=== PATIENT | male | born 1930 | race Caucasian/White ===

== ENCOUNTER 2018-09-26 21:37 | Inpatient (IN) ==
[2018-09-26 23:19] LABS: BASO# 0.03 X1000 (0.0-0.2); BASO% 0.3 % (0.0-0.8); EOS# 0.05 X1000 (0.0-0.7); EOS% 0.4 % (0.0-10.0); HEMATOCRIT 36.9 % (42.0-52.0); HEMOGLOBIN 12.1 g/dL (14.0-18.0); IMM GRAN# 0.05 X1000 (0.0-0.04); IMM GRAN% 0.4 % (0.0-0.5); LYMPH# 1.43 X1000 (1.2-3.4); MCH 31.4 PG (27-31); MCHC 32.8 g/dL (33-37); MCV 95.8 FL (81-99); MONO# 1.41 X1000 (0.11-0.59); MONO% 11.8 % (1.7-9.3); MPV 11.6 FL (7.4-10.4); NEUT# 8.96 X1000 (1.4-6.5); NEUT% 75.1 % (42.2-75.2); PLT 154 X1000 (130-400); RBC 3.85 XMIL (4.7-6.1); RDW 14.5 % (11.5-14.5); WBC 11.93 X1000 (4.8-10.8)
[2018-09-26 23:34] LABS: BE -0.2 mmoll (-3.0-3.0); BLOOD TYPE ARTERIAL; HCO3-(ACT) 24.7 mmoll (20.0-26.0); METHB 0.9 % (0.0-1.5); O2(CT) 15.1 mL/dL (15.0-23.0); O2HB 92.3 % (95.0-99.0); PCO2(98.6) 41 mmHg (35-45); PO2(98.6) 62 mmHg (60-100); SAMPLE BLOOD; SAO2 95.1 % (95.0-100.0); THB 11.6 g/dL (11.5-17.4); pH(98.6) 7.39 (7.35-7.45)
[2018-09-26 23:36] LABS: ALLEN TEST YES; MODALITY ROOM AIR
[2018-09-26 23:49] LABS: PTT 30.4 Seconds (22.3-41.8)
[2018-09-26 23:50] LABS: INR 1.03
[2018-09-26] MEDS ORDERED: ROCEPHIN 1 GM in NS 50 ML IV ONE (23:54)
[2018-09-26 23:58] LABS: ALBUMIN 4.1 g/dL (3.5-5.0); CALCIUM 9.1 mg/dL (8.8-10.2); CREATININE 1.2 mg/dL (0.7-1.2); POTASSIUM 4.6 mmol/L (3.5-5.1); TOTAL BILIRUBIN 0.4 mg/dL (0.20-1.00)
[2018-09-27] MEDS ORDERED: NS 1,000 ML IV ONE (00:11)
--- NOTE | 2018-09-27 00:15 | PROVIDER DOCUMENTATION ---
This chart was entered by Cristy Murray Scribe, acting as scribe for Tanvir Beckham MD. HPI-General Adult - General Source: patient, family, EMS <Jeffrey SamuelsBecky - Last Filed: 09/27/18 03:00> - General Unable to obtain history due to:: other (hpi from family, pt alert only to self, hx of dementia) - History of Present Illness -Gen Adult Nature of Presenting Problems: pt is a 88 yr old male presenting with family, pt hx of dementia. family reports pt has been sleepier than normal, fell x 2 yesterday, cough and bilateral lower leg edema. pt denies any pain, no other complaints. Pain Radiation: reports: no radiation Severity: reports: moderate Onset/Duration: reports: gradual Timing: reports: changing over time, getting worse Context/Activities at Onset: reports: light activity Modifying Factors: improves with: nothing Associated Symptoms: reports: cough, fatigue, weakness, trouble walking. denies: shortness of breath Similar Symptoms Previously?: No Recently seen or treated by another doctor?: No <Tanvir Alonzo - Last Filed: 09/29/18 22:31> - General Chief Complaint: Altered Mental Status Stated Complaint: COUGH Time Seen by Provider: 09/26/18 22:35 Allergies/Adverse Reactions: Patient Allergies Allergy/AdvReac Type Severity Reaction Status Date / Time No Known Allergies Allergy Verified 09/26/18 21:49 Home Medications: Home Medication List Medication Instructions Recorded Confirmed Last Taken Type Alogliptin Gerber/Pioglitazone 1 tab PO HS 05/25/15 09/27/18 Unknown History [Oseni 25-30 mg Tablet] Memantine HCl/Donepezil HCl 1 cap PO DAILY 05/25/15 09/27/18 Unknown History [Namzaric 28 mg-10 mg Capsule] Metoprolol Succinate E.r. [Toprol 50 mg PO HS 05/25/15 09/27/18 Unknown History Xl] Ranolazine E.r. [Ranexa] 500 mg PO BID 05/25/15 09/27/18 Unknown History Sotalol HCl [Betapace] 80 mg PO BID 05/25/15 09/27/18 Unknown History Aspirin [Aspir-Low] 81 mg PO HS 09/27/18 09/27/18 Unknown History ATORVAstatin [Lipitor] 10 mg PO HS tab 09/29/18 Unknown Rx Acetaminophen [Tylenol] 650 mg PO Q6H PRN PRN tab 09/29/18 Unknown Rx CefPROZIL [Cefzil] 250 mg PO BID #10 tab 09/29/18 Unknown Rx Dimethicone/Oxybenzone [place] 1 gm TOP PRN PRN stick 09/29/18 Unknown Rx [Blistex Medicated Drake Lip [place]] Gentamicin 0.3% Oph Drops 1 drp BOTH EYES Q8H bottle 09/29/18 Unknown Rx Metoprolol Succinate E.r. [Toprol 50 mg PO DAILY tab 09/29/18 Unknown Rx Xl] Pioglitazone [Actos] 30 mg PO DAILY tab 09/29/18 Unknown Rx Ranolazine E.r. [Ranexa] 500 mg PO Q12HR tab 09/29/18 Unknown Rx Review of Systems - Adult - REVIEW OF SYSTEMS - ADULT ROS:: ROS per family Constitutional: reports: fever, fatique Eyes: reports: no symptoms reported Ears, Nose, Mouth & Throat: reports: no symptoms reported Cardiovascular: reports: edema. denies: chest pain, palpitations, syncope Respiratory: reports: cough. denies: shortness of breath, wheezing Gastrointestinal: denies: diarrhea, vomiting Genitourinary: denies: dysuria, frequency, flank pain Musculoskeletal: denies: back pain, muscle aches Integumentary: reports: no symptoms reported Neurological: denies: dizziness/vertigo, headache/migraines, syncope Psychiatric: reports: no symptoms reported Endocrine: reports: no symptoms reported Hematologic/Lymphatic: reports: no symptoms reported Allergic/Immunologic: reports: no symptoms reported All Other Systems: Reviewed and Negative <Tanvir Alonzo - Last Filed: 09/29/18 22:31> Past History - Adult - PAST MEDICAL HISTORY-ADULT Review of Records: reports: Old Records Reviewed, Nursing Assessment Review, Medications Reviewed, Social history reviewed & non-contributory. Major Childhood Illnesses: reports: denies history Cardiovascular: reports: cardiac disease, pacemaker Respiratory: reports: denies history Gastrointestinal: reports: denies history Obstetrical/Gynecological: reports: denies history Genitourinary: reports: denies history Musculoskeletal: reports: denies history Neurological: reports: dementia Endocrine/Immune: reports: Diabetes Other Conditions: reports: denies history - PRIOR SURGERIES/PROCEDURES Surgical/Procedure History: reports: CABG, cardiac stent, pacemaker - IMMUNIZATION STATUS Childhood Immunizations: See Nurse Assessment Flu Vaccine: See Nurse Assessment - FAMILY HISTORY Family History: reviewed, not pertinent - SOCIAL HISTORY Smoking: denies Substance Use: denies Living Situation: family <Tanvir Alonzo - Last Filed: 09/29/18 22:31> Physical Exam-General - PHYSICAL EXAM-ADULT Initial Vital Signs Reviewed: Yes - CONSTITUTIONAL General Appearance: alert (to self-baseline normal), no apparent distress - EYES Eyes: other (right conjunctival injection, discharge) - HEAD, EARS, NOSE, MOUTH & THROAT HENMT: normocephalic/atraumatic, moist mucous membranes, normal ENT inspection - NECK Neck: non-tender, full range of motion, supple, normal inspection - RESPIRATORY Respiratory: chest non-tender, lungs clear, normal breath sounds - CARDIOVASCULAR Cardiovascular: normal peripheral pulses, regular rate, rhythm - GASTROINTESTINAL (ABDOMEN) Abdominal Exam: normal bowel sounds, non tender, soft - LYMPHATIC Lymphatic: no adenopathy - MUSCULOSKELETAL Back Exam: normal inspection Extremity: pulse deficit (bilateral pedal pulse deficits), pedal edema (bilateral 1+ pitting edema to mid swenson), slow capillary refill Peripheral Pulses: dorsalis-pedis (R): 1+, dorsalis-pedis (L): 1+ - SKIN Integumentary: normal color, normal turgor, ecchymosis (right foot) - NEUROLOGIC Neurologic: grossly normal - PSYCHIATRIC Psych/Mental Status: other (oriented only to self-baseline) <Tanvir Alonzo - Last Filed: 09/29/18 22:31> Progress - PLAN OF CARE/RESULTS Progress/Plan/Lab Results: Vital Signs - 8 hr 09/26/18 21:43 09/26/18 23:27 09/26/18 23:33 Temperature 99.9 F H Pulse Rate 65 63 74 Respiratory Rate 18 23 26 H Blood Pressure 174/75 168/124 O2 Sat by Pulse Oximetry 98 100 09/27/18 01:10 Temperature Pulse Rate 66 Respiratory Rate 23 Blood Pressure 155/82 O2 Sat by Pulse Oximetry 95 Laboratory Results - last 24 hr 09/26/18 09/26/18 09/26/18 21:49 23:10 23:10 WBC 11.93 H RBC 3.85 L Hgb 12.1 L Hct 36.9 L MCV 95.8 MCH 31.4 H MCHC 32.8 L RDW Std Deviation 14.5 Plt Count 154 MPV 11.6 H Immature Gran % (Auto) 0.4 Neut % (Auto) 75.1 Lymph % (Auto) 12.0 L [place] % (Auto) 11.8 H Eos % (Auto) 0.4 Baso % (Auto) 0.3 Immature Gran # (Auto) 0.05 H Neut # (Auto) 8.96 H Lymph # (Auto) 1.43 [place] # (Auto) 1.41 H Eos # (Auto) 0.05 Baso # (Auto) 0.03 PT INR PTT (Actin FS) Specimen Type Sample Site pH pCO2 pO2 HCO3 Base Excess Oxyhemoglobin ABG O2 Sat (Calculated) ABG O2 Saturation ABG Carboxyhemoglobin ABG Methemoglobin [place]andro Test A-a O2 Difference Total Hemoglobin Lactate Blood Gas Modality FiO2 % Sodium 136 Potassium 4.6 Chloride 101 Carbon Dioxide 25 Anion Gap 10 BUN 28 H Creatinine 1.2 Estimated GFR/1.73 m2 57 BUN/Creatinine Ratio 23 Glucose 205 H POC Glucose 257 H Calculated Osmolality 283 Calcium 9.1 Total Bilirubin 0.40 AST 20 ALT 13 Alkaline Phosphatase 78 Creatine Kinase 424 H Troponin T Total Protein 8.0 Albumin 4.1 Globulin 4.0 Albumin/Globulin Ratio 1.0 Plasma Lactate 09/26/18 09/26/18 09/26/18 23:10 23:10 23:10 WBC RBC Hgb Hct MCV MCH MCHC RDW Std Deviation Plt Count MPV Immature Gran % (Auto) Neut % (Auto) Lymph % (Auto) [place] % (Auto) Eos % (Auto) Baso % (Auto) Immature Gran # (Auto) Neut # (Auto) Lymph # (Auto) [place] # (Auto) Eos # (Auto) Baso # (Auto) PT 14.0 INR 1.03 PTT (Actin FS) 30.4 Specimen Type Sample Site pH pCO2 pO2 HCO3 Base Excess Oxyhemoglobin ABG O2 Sat (Calculated) ABG O2 Saturation ABG Carboxyhemoglobin ABG Methemoglobin Leandro Test A-a O2 Difference Total Hemoglobin Lactate Blood Gas Modality FiO2 % Sodium Potassium Chloride Carbon Dioxide Anion Gap BUN Creatinine Estimated GFR/1.73 m2 BUN/Creatinine Ratio Glucose POC Glucose Calculated Osmolality Calcium Total Bilirubin AST ALT Alkaline Phosphatase Creatine Kinase Troponin T 0.029 Total Protein Albumin Globulin Albumin/Globulin Ratio Plasma Lactate 1.0 09/26/18 23:19 WBC RBC Hgb Hct MCV MCH MCHC RDW Std Deviation Plt Count MPV Immature Gran % (Auto) Neut % (Auto) Lymph % (Auto) [place] % (Auto) Eos % (Auto) Baso % (Auto) Immature Gran # (Auto) Neut # (Auto) Lymph # (Auto) [place] # (Auto) Eos # (Auto) Baso # (Auto) PT INR PTT (Actin FS) Specimen Type ARTERIAL Sample Site R RADIAL pH 7.39 pCO2 41 pO2 62 HCO3 24.7 Base Excess -0.2 Oxyhemoglobin 92.3 L ABG O2 Sat (Calculated) 15.1 ABG O2 Saturation 95.1 ABG Carboxyhemoglobin 2.00 ABG Methemoglobin 0.9 Leandro Test YES A-a O2 Difference 36.0 Total Hemoglobin 11.6 Lactate 0.60 Blood Gas Modality ROOM AIR FiO2 % 21.0 Sodium Potassium Chloride Carbon Dioxide Anion Gap BUN Creatinine Estimated GFR/1.73 m2 BUN/Creatinine Ratio Glucose POC Glucose Calculated Osmolality Calcium Total Bilirubin AST ALT Alkaline Phosphatase Creatine Kinase Troponin T Total Protein Albumin Globulin Albumin/Globulin Ratio Plasma Lactate Orders Category Date Time Status Admit - [facility] Routine AdmDCTranf 09/27/18 02:57 Active Activity - Up Ad Julissa ORDERED Care 09/27/18 02:57 Active Call Admitting on Arrival AT ADMISSION Care 09/27/18 02:58 Active Cardiac Monitoring DIRECTED Care 09/26/18 21:50 Active Oxygen Therapy- ED Nursing DIRECTED Care 09/26/18 21:50 Active Resuscitation Status Routine Care 09/27/18 02:57 Ordered Saline Loc DIRECTED Care 09/27/18 02:57 Active Saline Loc NOW Care 09/26/18 21:50 Active Vital Signs Order ROUTINE Care 09/27/18 02:57 Active Heart Healthy Diet Diet 09/27/18 02:59 Active CHEST-2 VIEWS [RAD] Stat Exams 09/26/18 21:51 Taken ABG [RESP] Routine Lab 09/26/18 23:19 Completed CBC WITH ELECTRONIC DIFF [HEME] Stat Lab 09/26/18 23:10 Completed CK PROFILE [SP CHEM] Stat Lab 09/26/18 23:10 Results COMPREHENSIVE METABOLIC PANEL [CHEM] Stat Lab 09/26/18 23:10 Results LACTATE, PLASMA [CHEM] Stat Lab 09/26/18 23:10 Completed PROTIME WITH INR [COAG] Stat Lab 09/26/18 23:10 Completed PTT [COAG] Stat Lab 09/26/18 23:10 Completed TROPONIN T Stat Lab 09/26/18 23:10 Completed ua [URINALYSIS PL W/POSS RFLX CULT] [URINALYSIS] Stat Lab 09/26/18 21:51 Uncollected 0.9% Sodium Chloride Inj [Ns] 1,000 ml Med 09/27/18 00:11 Discontinued IV 999 mls/hr Acetaminophen [Tylenol] Med 09/27/18 02:57 Ordered 650 mg PO Q6H PRN PRN CefTRIAXONE [Rocephin] 1 gm Med 09/26/18 23:54 Discontinued 0.9% Sodium Chloride Inj [Ns] 50 ml IV NOW Lorazepam [Ativan] Med 09/27/18 02:21 Discontinued 1 mg IV NOW ONE Morphine Med 09/27/18 02:57 Ordered 2 mg IV Q2H PRN PRN Ondansetron [Zofran] Med 09/27/18 02:57 Ordered 4 mg IV Q4H PRN PRN Altered Mental Status Stat Oth 09/26/18 21:50 Ordered Oxygen Device Routine Oth 09/27/18 02:58 Active EKG [EKG] Stat Ther 09/26/18 21:50 Ordered Transfer/Admit Order [TRANSFER] Routine Transfer 09/27/18 02:59 Ordered Result Diagrams: 09/26/18 23:10 09/26/18 23:10 <Jeffrey Samuels - Last Filed: 09/27/18 03:00> - PLAN OF CARE/RESULTS Progress/Plan/Lab Results: Vital Signs - 8 hr 09/26/18 21:43 Temperature 99.9 F H Pulse Rate 65 Respiratory Rate 18 Blood Pressure 174/75 O2 Sat by Pulse Oximetry 98 Laboratory Results - last 24 hr 09/26/18 21:49 POC Glucose 257 H Orders Category Date Time Status Cardiac Monitoring DIRECTED Care 09/26/18 21:50 Active Oxygen Therapy- ED Nursing DIRECTED Care 09/26/18 21:50 Active Saline Loc NOW Care 09/26/18 21:50 Active CHEST-2 VIEWS [RAD] Stat Exams 09/26/18 21:51 Taken ABG [RESP] Routine Lab 09/26/18 21:50 Ordered CBC WITH ELECTRONIC DIFF [HEME] Stat Lab 09/26/18 23:10 Results CK PROFILE [SP CHEM] Stat Lab 09/26/18 23:10 Received COMPREHENSIVE METABOLIC PANEL [CHEM] Stat Lab 09/26/18 23:10 Received LACTATE, PLASMA [CHEM] Stat Lab 09/26/18 23:10 Received PROTIME WITH INR [COAG] Stat Lab 09/26/18 23:10 Received PTT [COAG] Stat Lab 09/26/18 23:10 Received TROPONIN T Stat Lab 09/26/18 23:10 Received ua [URINALYSIS PL W/POSS RFLX CULT] [URINALYSIS] Stat Lab 09/26/18 21:51 Uncollected Altered Mental Status Stat Oth 09/26/18 21:50 Ordered EKG [EKG] Stat Ther 09/26/18 21:50 Ordered Result Diagrams: 09/26/18 23:10 09/26/18 23:10 - EKG 1 Time of EKG reading by physician:: 22:32 EKG Read and Signed by:: Tanvir Alonzo EKG Interpretation (*Must complete 3 of following elements*): Abnormal (left anterior fasicular block, bifasicular block) Rate: 67 Rhythm: atrial-paced rhythm with occ PVCs [place]: normal QRS: RBB DE Interval: normal ST Wave: normal - CONSULTS/PCP/HOSPITALIST Notification #1 *Consult/PCP/Hospitalist*: Dr - CHANGE OF SHIFT REPORT (ED Provider) 1 Report Given and Care Transferred to:: Dr. Samuels Time of Transfer: 02:46 Items Pending: Other (Hx, PE and patient care discussed. pending admission.) <Tanivr Alonzo - Last Filed: 09/29/18 22:31> Departure - Departure Date of Disposition Decision: 09/27/18 Time of Disposition Decision: 03:00 Certified Medical Emergency: Emergent - Critical Care Note This patient required my direct & personal management of CC.: No <Jeffrey Samuels - Last Filed: 09/27/18 03:00> - Departure Date of Disposition Decision: 09/27/18 <Tanvir Alonzo - Last Filed: 09/29/18 22:31> - Departure DIAGNOSIS: Pneumonia Qualifiers: Pneumonia type: due to unspecified organism Laterality: unspecified laterality Lung location: unspecified part of lung Qualified Code(s): J18.9 - Pneumonia, unspecified organism Falls Qualifiers: Encounter type: initial encounter Qualified Code(s): W19.XXXA - Unspecified fall, initial encounter Disposition: ADMITTED INPATIENT 09 Condition: Stable Attestation - Physician/ DARON Attestation Patient care was provided by Advanced Practice Provider:: No The physician spent face to face time with patient:: Yes Advanced Practice Provider documentation review:: Supervising physician onsite and consulted in the evaluation and care of this patient. The physician did have a face to face encounter with the patient. <Jeffrey Samuels - Last Filed: 09/27/18 03:00> - Physician/ DARON Attestation Patient care was provided by Advanced Practice Provider:: No The physician spent face to face time with patient:: Yes Advanced Practice Provider documentation review:: Supervising physician onsite and consulted in the evaluation and care of this patient. The physician did have a face to face encounter with the patient. <Tanvir Alonzo - Last Filed: 09/29/18 22:31> This chart was documented by the indicated scribe, (Cristy Murray Scribe) and accurately reflects the services I performed and decisions made by me, Tanvir Beckham MD, as attested by the provider's signature.
[2018-09-27] MEDS ORDERED: ATIVAN IV ONE (02:21)
[2018-09-27] MEDS ORDERED: ZOFRAN IV PRN (02:57)
[2018-09-27] MEDS ORDERED: TYLENOL PO PRN (02:57)
--- NOTE | 2018-09-27 07:42 | Diag Imaging Result Doc PS360 ---
EXAM: CHEST-2 VIEWS - 09/26/2018 HISTORY: ams TECHNIQUE: Chest two views COMPARISON: 05/25/2015 FINDINGS: Inspiration appears somewhat shallow, but this may be exaggerated by exaggerated thoracic kyphosis. Heart size appears within normal limits. There are sternal wires from previous surgery and transvenous cardiac pacemaker again seen. There is some tortuosity of the thoracic aorta similar to prior. There is mild basilar subsegmental atelectasis. Lungs otherwise appear clear. There is no pleural effusion or pneumothorax identified. IMPRESSION: Somewhat shallow inspiration, with mild basilar atelectasis. No other evidence of acute disease. Electronically signed by Edy Koch 09/27/2018 7:40 AM
[2018-09-27 12:17] LABS: BILIRUBIN URINE NEGATIVE (NEGATIVE); BLOOD URINE NEGATIVE (NEGATIVE); CLARITY CLEAR (CLEAR); COLOR YELLOW; GLUCOSE URINE NEGATIVE (NEGATIVE); KETONE URINE NEGATIVE (NEGATIVE); LEUKOCYTES URINE TRACE (NEGATIVE); NITRITE URINE NEGATIVE (NEGATIVE); PROTEIN URINE 1+(30 mg/dL) mg/dL (NEGATIVE); SP GRAVITY URINE 1.015; UROBILINOGEN URINE NORMAL
[2018-09-27 12:18] LABS: URINE BACTERIA 2+ /HFP; URINE CAST NONE SEEN /LPF; URINE CRYSTAL NONE SEEN /HPF; URINE EPITHELIAL CELLS <10 /HPF (<10); URINE RBC <10 /HPF (<10); URINE SOURCE CLEAN CATCH; URINE YEAST NONE SEEN /HPF
[2018-09-27 12:57] LABS: CK-MB 4.16 ng/mL (0.0-5.0)
[2018-09-27] MEDS ORDERED: CALMOSEPTINE OINTMENT TOP PRN (14:21)
[2018-09-27] MEDS ORDERED: LIPITOR PO SCH (14:45)
--- NOTE | 2018-09-27 14:45 | EKG Report ---
Test Performed on : 09/27/2018 2:36:39 PM Test Reason : EMBOLI Blood Pressure : / mmHG Vent. Rate : 063 BPM Atrial Rate : 058 BPM P-R Int : 000 ms QRS Dur : 150 ms QT Int : 476 ms P-R-T Axes : 000 -47 003 degrees QTc Int : 487 ms Atrial-paced rhythm Right bundle branch block Left anterior fascicular block Bifascicular block Abnormal ECG When compared with ECG of 26-SEP-2018 22:32, (Unconfirmed) Electronic atrial pacemaker has replaced Electronic ventricular pacemaker Confirmed by Mono Kaiser MD ([id number]) on 09/30/2018 11:10:33 AM
[2018-09-27] MEDS: ROCEPHIN 1 GM in NS 50 ML IV SCH (14:51)
--- NOTE | 2018-09-27 15:01 | EKG Report ---
Test Performed on : 09/26/2018 10:32:12 PM Test Reason : AMS Blood Pressure : / mmHG Vent. Rate : 067 BPM Atrial Rate : 067 BPM P-R Int : 136 ms QRS Dur : 134 ms QT Int : 462 ms P-R-T Axes : 095 -45 000 degrees QTc Int : 488 ms Atrial-paced rhythm with occasional ventricular-paced complexes Right bundle branch block Left anterior fascicular block Bifascicular block Abnormal ECG No previous ECGs available Unconfirmed Result
[2018-09-27] MEDS: ACTOS PO SCH (15:05)
[2018-09-27] MEDS: RANEXA PO SCH ×2 (15:05→21:45)
[2018-09-27] MEDS: BETAPACE PO SCH ×2 (15:05→21:45)
[2018-09-27] MEDS: TOPROL XL PO SCH (15:05)
[2018-09-27] MEDS: ONGLYZA PO SCH (15:05)
[2018-09-27 15:39] LABS: HEMOGLOBIN A1C 6.4 % (4.8-6.0)
[2018-09-27] MEDS: GENTAMICIN 0.3% OPH DROPS BOTH EYES SCH (21:45)
[2018-09-28] MEDS: GENTAMICIN 0.3% OPH DROPS BOTH EYES SCH ×3 (05:01→21:15)
[2018-09-28] MEDS ORDERED: BLISTEX MEDICATED BERRY LIP BALM TOP PRN (09:43)
[2018-09-28] MEDS: RANEXA PO SCH ×2 (10:16→21:14)
[2018-09-28] MEDS: ACTOS PO SCH (10:16)
[2018-09-28] MEDS: BETAPACE PO SCH ×2 (10:17→21:14)
[2018-09-28] MEDS: TOPROL XL PO SCH (10:17)
[2018-09-28] MEDS: ONGLYZA PO SCH (10:17)
--- NOTE | 2018-09-28 13:16 | HISTORY AND PHYSICAL ---
HISTORY OF PRESENT ILLNESS: This is a patient I have seen one time previously. He is an 88-year- old demented man that was brought in by his family because he had been acting sleepier than normal and had fallen on 2 different occasions, coughing a bit, some swelling in his legs, no pain or other complaints. This change is a little more than usual. He does not really recognize where he is, and he is a little weaker than normal. He only does light activity. He usually just walks around with a walker but is falling now with the walker. He has had a bit of a cough. According to the family, this worsening has been a gradual onset, not a sudden onset, so because of the altered mental status, they brought him to the ER and he was admitted on 09/27/2018. His diagnosis at the time of admission was pneumonia. ALLERGIES: He has no known allergies. CODE STATUS: All we know is he is a full code. REVIEW OF SYSTEMS: General: We talked to his family, they said that generally he feels feverish and has been fatigued. HEENT: No apparent changes in the appearance of his eyes. No runny nose. Cardiovascular: He has some swelling in his legs, but he is not complaining of chest pain, palpitations, syncope. He has been coughing, but he denies shortness of breath or wheezing. Gastrointestinal: He denies diarrhea or vomiting. No bloody or black tarry stools, no significant abdominal pain. Genitourinary: He has urinary frequency and some incontinence. He denies flank pain and he denies dysuria or hematuria. Musculoskeletal: He denies back pain or muscle aches. Skin: No issues. Neurological: He is dizzy at times, or seemingly. No headaches, no fainting spells. Psychiatric: He is demented. Endocrine: No heat or cold intolerance. Hematological: No significant bruising or bleeding. Allergies: No issues with asthma or hayfever. PAST MEDICAL HISTORY: He has a history of some type of cardiac disease and has got a cardiac stent. He has had coronary artery bypass grafting. He has had a pacemaker. He has got dementia. SOCIAL HISTORY: He denies smoking. He lives with his family. VITAL SIGNS: At the time of admission, he had a temp of 99.9, pulse was 65, respiratory rate was 18, BP 174/75, O2 sat was 98. DIAGNOSTICS: A blood sugar was 257. He had an EKG which showed atrial paced rhythm with occasional PVCs. He also had a left anterior fascicular block or bifascicular block. They felt that his x-ray showed pneumonia. PHYSICAL EXAMINATION: HEENT: Head was normocephalic. Eyes were PERRL. EOMs intact. SC clear. Nares patent. Oropharynx negative. NECK: Nontender. Midline trachea. No masses or lymphadenopathy. RESPIRATORY: Diminished but clear breath sounds. CARDIOVASCULAR: Regular rhythm and rate, no obvious murmur or gallops. ABDOMEN: Soft, no hepatosplenomegaly. LYMPHATICS: Negative. BACK: Negative. SKIN: Clear. He had some ecchymoses on his right foot. Normal turgor. NEUROLOGIC: Grossly, neurologically he was intact. PSYCHIATRIC: He is demented. PLAN: He was admitted with pneumonia, although subsequent x-ray read by the radiologist showed shallow inspiration, mild basilar atelectasis, no evidence of acute disease. That chest x-ray was 09/27/2018. ASSESSMENT: 1. He was admitted with pneumonia, placed on antibiotics. 2. History of coronary artery bypass graft. 3. Ischemic heart disease. 4. Pacemaker. 5. Dementia. cc: Mono Kaiser MD
--- NOTE | 2018-09-28 13:39 | Diag Imaging Result Doc PS360 ---
EXAM: CHEST-2 VIEWS 09/28/2018 HISTORY: cough TECHNIQUE: PA and lateral chest COMMENT: There is poor inspiration. There is opacification of the left costophrenic angle. There are platelike opacities bilaterally. There has been no significant change since 09/26/2018. Compared to 05/25/2015 there has been no significant change. IMPRESSION: Pleural and parenchymal fibrosis. Electronically signed by Josafat Zafar 09/28/2018 1:37 PM
[2018-09-28] MEDS: ROCEPHIN 1 GM in NS 50 ML IV SCH (14:18)
[2018-09-28] MEDS ORDERED: LIPITOR PO SCH (21:00)
[2018-09-28] MEDS: MORPHINE IV PRN (22:06)
[2018-09-29] MEDS: MORPHINE IV PRN (00:24)
[2018-09-29] MEDS: GENTAMICIN 0.3% OPH DROPS BOTH EYES SCH ×2 (05:48→06:11)
[2018-09-29 06:16] VITALS: BP 178/62
--- NOTE | 2018-09-29 09:26 | PROGRESS NOTE ---
DATE: 09/29/2018 SUBJECTIVE: The patient is in bed. He has his daughter present. He is sleeping currently. He has had no particular issues. A little bit confused from time to time. He has got some baseline confusion from his Alzheimer's disease. Anyhow, his pneumonia has not panned out. He has got negative blood cultures. Negative urine cultures. Chest x-ray x2 did not show any pneumonia. His atrial fibrillation has not been an issue. We are going to discharge him resuming his regular medications and then a short course of antibiotics and follow him up in the office in a week or two. cc: Mono Kaiser MD
[2018-09-29] MEDS: RANEXA PO SCH (10:11)
[2018-09-29] MEDS: ONGLYZA PO SCH (10:11)
[2018-09-29] MEDS: TOPROL XL PO SCH (10:11)
[2018-09-29] MEDS: BETAPACE PO SCH (10:12)
[2018-09-29] MEDS: ACTOS PO SCH (10:12)
--- NOTE | 2018-10-20 00:09 | PROGRESS NOTE ---
DATE: 09/27/2018 OBJECTIVE: Temperature 97.9 degrees, pulse 59, respiratory rate 16, blood pressure 165/69. Oxygen saturation 100% on 1 liter nasal cannula oxygen. Laboratory data: Urinalysis showed specific gravity of 1.1015, 1+ protein, otherwise negative, trace red cells, 10-20 WBCs, 2+ bacteria. His cultures so far are negative. He is not particularly dyspneic. Lungs are bilaterally clear. He has peripheral edema. ASSESSMENT AND PLAN: We will continue to give him ceftriaxone and continue him on his diabetic medications and metoprolol, atorvastatin, Ranexa. Discharge medications will include Cefzil 250 mg b.i.d. He will follow up in the office. We will repeat a chest x-ray with 2 chest x-rays here so far negative. cc: Mono Kaiser MD
--- NOTE | 2018-10-20 00:13 | PROGRESS NOTE ---
DATE: 09/28/2018 OBJECTIVE: Temperature 98.6 degrees, pulse 60, respiratory rate 20, blood pressure 173/53, oxygen saturation 100% on nasal cannula oxygen. He had a followup chest x-ray which showed poor inspiration, opacification in the left costophrenic angle. There were plate like opacities bilaterally. There has been no significant change since 09/26/2018. Compared to 05/25/2018, there has been no significant change. Suspicion of pleural parenchymal fibrosis rather than pneumonia. The patient was basically short of breath. Nothing showed up on his cultures and chest x-rays. EKGs showed right bundle branch block, atrial paced rhythm, left vesicular block, otherwise negative. ASSESSMENT AND PLAN: We will plan to send him home tomorrow with some oral antibiotics. cc: Mono Kaiser MD
--- NOTE | 2018-10-20 00:39 | HISTORY AND PHYSICAL ---
HISTORY OF PRESENT ILLNESS: The patient is an 88-year-old male that I have seen previously in the office. He presented to the Emergency Room, brought in by EMS with family right behind them. The family says that the patient has dementia and is only alert as to who he is, not date and where he is located. This 88-year-old male has been acting sleepier, more tired than normal. He fell x 2 yesterday per family with cough and he has significant bilateral lower leg edema. But he denies any pain; no complaints. He is just feeling just fine. He claims he has no significant pain in any of his extremities or joints, rib cage, C, T or L spine. He has gradually been becoming worse from his dementia standpoint. He reports he has had a cough, feels weak, has trouble walking and fatigue. He denies shortness of breath. In the ER, he says that he is on Oseni 25-30 mg, Namsaric 28-10, metoprolol succinate 50 mg at bedtime, Ranexa 500 mg b.i.d., sotalol 80 mg p.o. b.i.d., aspirin 81 mg daily, atorvastatin 10 mg daily. He also says he is on pioglitazone. So we are not really sure about the medications per the family. ALLERGIES: He is not allergic to anything. REVIEW OF SYSTEMS: Review of systems from this demented man is mostly edited by his family. CONSTITUTIONAL: Generally, he has not had any significant weight gain or weight loss. He is chronically fatigued. They think he may have had a fever recently. No obvious issues with his eyes. HEENT: No congestion. Oropharynx negative. NECK: Supple. Trachea is midline. No lymphadenopathy. CARDIOVASCULAR: He has chronic edema. Denies chest pain, palpitations or syncope. RESPIRATORY: He has cough occasionally. Denies any shortness of breath, significant wheezing or pain with breathing. GASTROINTESTINAL: Denies diarrhea, vomiting, melena or hematochezia. GENITOURINARY: Denies dysuria, frequency, flank pain. MUSCULOSKELETAL: Denies back pain, muscle aches. SKIN: No reported problems. NEUROLOGIC: Other than being demented, he does not have any history of migraines, syncope or seizure disorder. PSYCHIATRIC: He is again just demented. ENDOCRINE: No polyuria or polydipsia, heat or cold intolerance. HEMATOLOGICAL: No clotting or bleeding disorder. No DVT, SVT, PEs. PAST MEDICAL HISTORY: Surgically, he has had a previous CABG, cardiac stents and a pacemaker. He denies any shortness of breath. He denies any symptoms basically but he is demented. SOCIAL HISTORY: He is a nonsmoker. He lives with his family. No history of any substance abuse. PHYSICAL EXAMINATION: VITAL SIGNS: When he arrived, temperature was 99.9 degrees, pulse 65, respiratory rate 18, blood pressure 174/75. HEENT: Head normocephalic. Trachea is midline. No bruits. Face negative. Scalp was normal. NECK: Supple. Exaggerated lordosis of the cervical spine. He is somewhat kyphotic. CHEST: Bilateral clear breath sounds. No appreciated consolidative findings. CARDIOVASCULAR: Regular rate and rhythm. ABDOMEN: Soft. No hepatosplenomegaly. EXTREMITIES: He has 3+ edema with pre stasis dermatitis type skin. LABORATORY DATA: On CBC, white count was 11,930, hematocrit 36.9, platelet count 154, relatively normal differential. Sodium 136, potassium 4.6, chloride 101, CO2 of 25, BUN 28, creatinine 1.2, estimated GFR of 57, BUN:creatinine ratio of 23, glucose 205 and 257, calcium 9.1. LFTs were normal. CK was a little bit high at 424. Troponin was not elevated; it was 0.029. Lactate was 1. Blood gases: pH of 7.39, PO2 of 62, PCO2 of 41 on room air. He had a chest x-ray on admission which showed somewhat shallow respirations, which exaggerates his thoracic kyphosis. Heart size is normal. Sternal wires from previous surgery and transvenous pacemaker are again seen. Some tortuosity of thoracic aorta, unchanged. There is mild basilar subsegmental atelectasis. Lungs otherwise clear. There is no pleural effusion or pneumothorax. Basically mild basilar atelectasis. ASSESSMENT AND PLAN: He was admitted to the hospital here from the Emergency Room with a diagnosis from a 2-physician evaluation showing relatively normal EKG, atrial paced rhythm, bifascicular block, left anterior fascicular block. He is admitted as pneumonia per the second physician that saw him. He was given a bolus of fluids, some Tylenol and was started on ceftriaxone, Ativan. Morphine was given in the Emergency Room along with Zofran. He was given an oxygen device. He was admitted as a pneumonia. cc: Mono Kaiser MD
--- NOTE | 2018-10-25 10:55 | DISCHARGE SUMMARY ---
ADMISSION DATE: 09/27/2018 DISCHARGE DATE: 09/29/2018 This patient is an 88-year-old male, who presented with family. The patient has a history of dementia. The patient's family reports that he has been sleepier than normal, fell about 2 days ago, cough, and bilateral lower leg pain, edema. The patient denies any pain, no other complaints. He denied shortness of breath. He has had just general fatigue, weakness, trouble walking, and been fatigued. He has a past history of diabetes, dementia, hypertension, ischemic heart disease, atrial fibrillation, dyslipidemia, chronic pain. In the ER, he had a low-grade temperature of 99.9, pulse was 65, respiratory rate 18, blood pressure 174/75, O2 saturation was 98%. His initial lab, he had 11,930 white count, hematocrit was 37, platelet count was 154. Random glucose 205 and 257. Electrolytes were normal, sodium 136, potassium 4.6, chloride 101, CO2 25, BUN 28, creatinine 1.2, estimated GFR 57. His calcium was 9.1. Total bilirubin 0.4, AST was 20, ALT 13, alkaline phosphatase 78. CK 424. Total protein 8, albumin 4.1, globulin 4. PT 14. INR 1.03. Troponin was 0.029. Blood gas: pH 7.39, pCO2 of 41, pO2 of 62, on room air. When he was in the ER, he got a bolus 650 of Tylenol, 1 g of ceftriaxone, 1 g IV of lorazepam, 2 mg IV of morphine, Zofran 4 mg q.4. His EKG: Abnormal left fascicular block, bifascicular block, with a rate of 67, occasional PVC, atrial paced rhythm. He was admitted with suspected pneumonia. So in the hospital, his microbiology: No growth in his blood, no growth in his urine. REPORTS/IMAGING: His initial chest x-ray showed a somewhat shallow inspiration with mild basilar atelectasis, no acute disease. Followup x-ray showed pleural parenchymal fibrosis. His EKG showed right bundle branch block and left anterior fascicular block. Random sugars were good throughout the hospital stay. We he got in on 09/26, his BUN was 28, creatinine 1.2, with a BUN creatinine ratio of 23 compatible with some mild dehydration. His A1c is 6.4 reflecting good sugar control. His plasma lactate was insignificant. Protein was 1+, trace WBC, 10-20 WBC. Blood gas: pH 7.39, pCO2 41, pO2 of 62, on room air. So, he was admitted and placed on ceftriaxone, some lorazepam, morphine p.r.n. He was given his routine drugs, which include Ranexa, atorvastatin, metoprolol succinate 50 daily, sotalol 120 b.i.d., pioglitazone 30, saxagliptin 5 mg. So, he had low-grade temperature starting off in this admission, stayed in the hospital 3 days, was discharged. Chest x-rays did not reflect a pneumonia nor did his culture data provide any information other than they were negative. On laboratory, his gases were adequate, comp was fine other than he was dehydrated with BUN 20 and creatinine 1.2, and his CBC had 11,900 cells with a relatively normal differential. The patient was discharged to home, and he is resuming his regular medicines along with cefprozil 250 p.o. b.i.d. He is to return to the office in a week or two. cc: Mono Kaiser MD
== END 2018-09-29 11:23 | disposition home health service (06) | DRG 194 ==
LOC: P.ED 21:37 → P.EDIPHOLD 09-27 04:39 → SUATTDRO 09-27 04:39 → P.MEDSURG 09-27 09:55
PROVIDERS: ADMIT Internal Medicine; ATTEND Internal Medicine
CPT/HCPCS: 71020; 71046; 80053; 81001; 82550; 82553; 82805; 82948; 83036; 83605; 84484; 85025; 85610; 85730; 87040; 87088; 93005; 93010; 94761; 96365; 96375; 99285; A9270; J0696; J2060; J2270; J2405; J7030; XXXXX